=== PATIENT | male | born 1975 | race Two or more races ===

== ENCOUNTER 2019-12-03 14:51 | Inpatient (IN) | payer OTHER ==
[~2019-12-03] VITALS: Ht 170.2 cm; Wt 80.7 kg
[2019-12-05] MEDS ORDERED: DOXE PO (08:40)
[2019-12-05] MEDS ORDERED: SERTRALINE PO (08:41)
[2019-12-05] MEDS ORDERED: AMBIEN10 MG PO (08:42)
[2019-12-05] MEDS ORDERED: PERCOC PO (08:43)
[2019-12-05] MEDS ORDERED: CLONAZEPAM1 MG PO (08:43)
[2019-12-05] MEDS ORDERED: TRAMADO PO (08:44)
[2019-12-12] MEDS ORDERED: SERTRALINE HCL100 MG PO (08:05)
[2019-12-12] MEDS ORDERED: DOXEPIN HCL100 MG PO (08:05)
[2019-12-12] MEDS ORDERED: VITAMIN B12-FO1 EACH (08:06)
[2019-12-12] MEDS ORDERED: ULTRAM50 MG PO (08:06)
[2019-12-12] MEDS ORDERED: PERCOCET 2.5-31 EACH (08:08)
[2019-12-12] MEDS ORDERED: MORPHINE SULFAT15 MG (08:10)
== END 2019-12-14 14:09 | disposition home or self-care (01) | DRG 661 ==
LOC: O/R 12-12 04:41 → SURH 12-12 04:41 → RECOVERY 12-12 07:00 → SURH 12-12 14:55
PROVIDERS: ADMIT Urology; ATTEND Urology
PROC: 0TC18ZZ Extirpation of Matter from Left Kidney, Via Natural or Artificial Opening Endoscopic (ICD-10-PCS; 2019-12-12)
PROC: BT1FZZZ Fluoroscopy of Left Kidney, Ureter and Bladder (ICD-10-PCS; 2019-12-12)
PROC: 0TC14ZZ Extirpation of Matter from Left Kidney, Percutaneous Endoscopic Approach (ICD-10-PCS; principal; 2019-12-12 07:00)
DX: N20.0 Calculus of kidney (principal)

== ENCOUNTER 2019-12-19 06:40 | Outpatient (CLI) | payer OTHER ==
[~2019-12-19 06:40] MED LIST: AMBIEN10 MG PO; CLONAZEPAM1 MG PO; DOXE PO; DOXEPIN HCL100 MG PO; MORPHINE SULFAT15 MG; PERCOC PO; PERCOCET 2.5-31 EACH; SERTRALINE HCL100 MG PO; SERTRALINE PO; TRAMADO PO; ULTRAM50 MG PO; VITAMIN B12-FO1 EACH
== END 2019-12-19 06:43 | disposition home or self-care (01) ==
LOC: RAD 06:40
PROVIDERS: ATTEND Urology
DX: N20.0 Calculus of kidney (principal)